=== PATIENT | female | born 1980 | race Hispanic/Latino ===

== ENCOUNTER 2018-10-24 16:40 | Inpatient (IN) | payer MEDICAID, OTHER, SELFPAY ==
[2018-10-24 18:12] VITALS: BMI 36.7
--- NOTE | 2018-10-24 18:15 | PDOC.FPROB ---
FMR OB H&P: HPI - History of Present Illness Chief Complaint: Elevated BP's at [facility] Indentification: 38 year old History of Present Illness: 38 year old at 38 wks by 17.1 wk julieta presents due to elevated BP's at clinic. Patient was noted to have several elevated SBP's in the 150's. She was also complaining of headaches at that time. She currently denies headache, vision changes, RUQ pain, swelling, or shortness of breath. Patient denies LoF, contractions, vaginal bleeding, or vaginal discharge. Primary Care Physician: [facility] Felecia De La Cruz FMR OB H&P: Current - Care : 4 Para: [id number] Gestational age: 38.0 wks Due date: 11/07/2018 Dating Criteria: LMP/17.1 wk US - OB Labs Blood type: A RH: positive Antibody Screen: negative HIV: negative RPR: negative HepBsAg: negative Rubella: immune Gonorrhea: negative Chlamydia: negative FMR OB H&P: History - Past Medical History PMH: Obesity - OB History OB History: AMA Obesity - HISTOLOGY AIDE History HISTOLOGY AIDE History: Denies - Surgical History Sx History: Denies - Social History Social History: Denies alcohol, tobacco, or drug use. - Family History Family History: Noncontributory FMR OB H&P: Medications - Current Home Medications: Medication Instructions Recorded Confirmed Type Calcium Carbonate [Tums] 500 mg PO QID PRN 10/24/18 10/24/18 History Vit,Calc76/Iron/Folic 1 tablet PO DAILY 10/24/18 10/24/18 History [Prenatabs Rx Tablet] Allergies/Adverse Reactions: Allergies Allergy/AdvReac Type Severity Reaction Status Date / Time No Known Allergies Allergy Unverified 10/24/18 18:07 FMR OB H&P: ROS - Review of Systems General: denies: fever/chills, weight/appetite/sleep changes Eyes: denies: vision changes, double vision ENT: denies: nasal congestion, rhinorrhea, sore throat Cardiovascular: denies: chest pain, palpitation, edema Respiratory: denies: cough, congestion, shortness of breath Gastrointestinal: denies: abdominal pain, nausea, vomiting, diarrhea Genitourinary (Female): denies: dysuria, vaginal discharge, vaginal pain, vaginal bleeding, contractions, vaginal pressure Musculoskeletal: denies: pain, stiffness Neurologic: denies: syncope, seizures Hematologic/Lymphatic: denies: prolonged or excessive bleeding Psychological: denies: depression, anxiety FMR OB H&P: Vital Signs - Maternal Vital signs: BP's 131/77 - 149/86 Pulse 60's Afebrile - Heart Tones Baseline: 130 Variability: moderate Acceleration: present Deceleration: absent Category: category 1 [place] contractions every: q5 min FMR OB H&P: Physical Exam - Physical Exam General: NAD, awake, alert and oriented HEENT: MMM, conjunctiva clear, grossly normal vision, grossly normal hearing Neck: supple Heart: RRR, pulses present General: CTAB, no respiratory distress Abdomen: soft, gravid, non-tender Musculoskeletal: pulses present, FROM in all four extremities Neurological: no tremor, no focal deficit Skin: no rash, capillary refill <2 seconds Lymphatic: no unusual bruising or bleeding, no purpura Psychiatric: intact recent and remote memory, good judgement and insight FMR OB H&P: A/P - Problem List (1) Term Current Visit: Yes Status: Acute Code(s): Z34.80 - ENCOUNTER FOR SUPRVSN OF NORMAL , UNSP TRIMESTER (2) AMA (advanced maternal age) multigravida 35+ Current Visit: Yes Status: Acute Code(s): O09.529 - SUPERVISION OF ELDERLY MULTIGRAVIDA, UNSPECIFIED TRIMESTER (3) Gestational hypertension Current Visit: Yes Status: Suspected Code(s): O13.9 - GESTATIONAL HTN W/O SIGNIFICANT PROTEINURIA, UNSP TRIMESTER Disposition: 38 year old at 38 wks by LMP/17.1 wk sono presents due to elevated BP's at [facility]. 1. Suspected gHTN - Workup pending (CBC, CMP, urine protein/creatinine) - q15 min BP's: Range since admission 131/77 - 149/86 - Patient currently asymptomatic but was noted to have NICHOLAS earlier today at [facility] - [facility] appt at 15:30, BP's continue to be elevated 4 hours from initial elevated BP. Will wait an additional 2 hours to see if still elevated. If still elevated at that time, then patient meets criteria for gHTN and at 38 wks is candidate for induction. 2. AMA 3. Obesity Discussion: Date/Time: 10/24/181812 This H&P was discussed with Dr. Pham who agrees with the above documentation and plan. Signature: Alvina Meza DO PGY-2 Addendum - Attending - Attending Attestation Date/Time: 10/24/182204 I personally evaluated the patient and discussed the management with Dr. Meza and Nick. I agree with the History, Examination, Assessment and Plan documented above with any addition or exceptions noted below.
[2018-10-24 18:50] LABS: #Eosinphils 0.1 thou/uL (0.0-0.7); #Monocytes 0.6 thou/uL (0.11-0.59); #Neutrophils 7.7 thou/uL (1.40-6.50); %Basophils 0.1 % (0.0-1.0); %Eosinophils 0.8 % (0.0-10.0); %Lymphocytes 19.4 % (21.0-51.0); %Monocytes 5.5 % (0.0-10.0); %Neutrophils 74.2 % (42.0-75.0); Hemoglobin 13.3 g/dL (12.0-16.0); Mean Corpuscular HGB CONC 33.9 g/dL (32.0-36.0); Mean Corpuscular Hemoglobin 29.8 pg (27.0-31.0); Mean Corpuscular Volume 87.9 fL (78.0-98.0); Mean Platelet Volume 9.2 fL (7.4-10.4); Platelet Count 218 thou/uL (130-400); RBC Distribution Width 12.8 % (11.5-14.5); Red Blood Cell (RBC) Count 4.46 mill/uL (4.20-5.40); White Blood Cell (WBC) Count 10.4 thou/uL (4.8-10.8)
[2018-10-24 19:09] LABS: AST (SGOT) 12 U/L (5-34); Albumin 3.2 g/dL (3.5-5.0); Anion Gap 10 mmol/L (10-20); Bilirubin, Total Less than 0.2 mg/dL (0.2-1.2); Calc. Creatinine Clearance 163 mL/min (70-130); Calcium 9.6 mg/dL (7.8-10.44); Carbon Dioxide 22 mmol/L (22-29); Chloride 109 mmol/L (98-107); Estimated GFR-MDRD Greater than 90; Globulin 3.3 g/dL (2.4-3.5); Glucose 80 mg/dL (70-105); Potassium 4.1 mmol/L (3.5-5.1); Protein, Total 6.5 g/dL (6.0-8.3); Sodium 137 mmol/L (136-145)
[2018-10-24 19:25] LABS: ALT (SGPT) 10 U/L (8-55); Alkaline Phosphatase 151 U/L (40-150); BUN (Urea Nitrogen) 9 mg/dL (7.0-18.7)
[2018-10-24 19:50] LABS: Creatinine, Urine 81.55 mg/dL (47-110)
[2018-10-24] MEDS ORDERED: NS / Oxytocin 40 units/1000ml 1,000 ML IV PRN (21:23)
[2018-10-24] MEDS ORDERED: Lidocaine 1% (PF) 30 ML VIAL SC PRN (21:23)
[2018-10-24] MEDS ORDERED: Ondansetron PF 4 MG/2 ML Vial IVP PRN (21:23)
[2018-10-24] MEDS ORDERED: Acetaminophen 500 MG TAB PO PRN (21:23)
[2018-10-24] MEDS ORDERED: Promethazine HCl 25 MG/ML VIAL IM PRN (21:23)
--- NOTE | 2018-10-24 21:32 | PDOC.EVN ---
Event Note - Event Note Event Note: Pt's urine protein/creatinine ratio shows .31, meeting criteria for pre- eclampsia. I discussed the results with the pt and she acknowledges understanding of her condition and our recommendation to induce. Pt will need cytotec induction due to unfavorable cervix.
[2018-10-24] MEDS: Lactated Ringer's 1,000 ML IV SCH (22:55)
--- NOTE | 2018-10-24 23:15 | ULT ---
LIMITED OB ULTRASOUND: 10/24/18 HISTORY: 38-year-old female for limited OB ultrasound to evaluate for position and placental location. There is a single intrauterine fetus in vertex presentation. Heart rate 139 beats per minute. Placent a is fundal and on the maternal right side. 5.0 x 3.8 x 6.1 cm hypoechoic solid mass within the lower uterus evidence for a uterine fibroid. IMPRESSION: Vertex presentation. heart rate 139 beats per minute. Fundal and maternal right sided placenta. Evidence for an intrauterine fibroid. POS: DOUGIE
[2018-10-24 23:29] LABS: Hemoglobin 13.5 g/dL (12.0-16.0); Mean Corpuscular Hemoglobin 30.6 pg (27.0-31.0); Mean Corpuscular Volume 87.5 fL (78.0-98.0); Mean Platelet Volume 9.6 fL (7.4-10.4); Platelet Count 216 thou/uL (130-400); RBC Distribution Width 12.9 % (11.5-14.5); Red Blood Cell (RBC) Count 4.41 mill/uL (4.20-5.40); White Blood Cell (WBC) Count 11.6 thou/uL (4.8-10.8)
[2018-10-25 00:01] LABS: HBSAg Index 0.17 S/CO (0-0.99); Hep B Surf Ag Non-Reactive S/CO (NonReactive); Syphilis Antibody Nonreactive (Nonreactive); Syphilis Antibody Index 0.03 S/CO (<1.00 Non-Reactive)
[2018-10-25] MEDS: Misoprostol 100 MCG TAB VAG SCH ×2 (00:24→19:20)
--- NOTE | 2018-10-25 02:44 | PDOC.LDPN ---
Labor & Delivery Progress Note - Subjective Subjective: comfortable, no concerns - Objective Vital signs reviewed and normal: yes General: NAD, resting Uterine fundus: non tender SVE: 1/0/-3 FHT: category 1 (baseline 150s, moderate variability, accels present, no decels) - Assessment (1) Pre-eclampsia Code(s): O14.90 - UNSPECIFIED PRE-ECLAMPSIA, UNSPECIFIED TRIMESTER Current Visit: Yes Status: Acute (2) AMA (advanced maternal age) multigravida 35+ Code(s): O09.529 - SUPERVISION OF ELDERLY MULTIGRAVIDA, UNSPECIFIED TRIMESTER Current Visit: Yes Status: Acute (3) Term Code(s): Z34.80 - ENCOUNTER FOR SUPRVSN OF NORMAL , UNSP TRIMESTER Current Visit: Yes Status: Acute -: This is a 38 yo at 38.1 wk Pre-eclampsia and gHTN -Pt meets criteria for pre-eclampsia with urine protein/creatinine ratio of 0.31 -Pt had elevated BP greater that 4 hours apart -Admit to L&D -Cytotec induction -Continue monitoring vital signs and FHT -Initial check is 3, no contractions at this time AMA Obesity Addendum - Attending - Attending Attestation Date/Time: 10/25/18 [id number] I personally evaluated the patient and discussed the management with Dr. Romero. I agree with the History, Examination, Assessment and Plan documented above with any addition or exceptions noted below. My review of the FHT since 0200 has been mainly Cat 2. no Cat 3.
[2018-10-25] MEDS: Lactated Ringer's 1,000 ML IV SCH (02:46)
--- NOTE | 2018-10-25 02:54 | PDOC.EVN ---
Event Note - Event Note Event Note: Paged to L&D for concerning strip. FHTs baseline 150, variability mild to moderate, 3 variable decels present with quick return of FHR. Cat II strip. Pt has been feeling some contractions, every 3-4 minutes and stopped when pt was turned on her side. We are currently bolusing IVFs. We will continue monitoring FHT. Next check is at 0400.
[2018-10-25] MEDS ORDERED: Bicitra 30 ML UDCUP ONE (04:11)
--- NOTE | 2018-10-25 04:22 | PDOC.EVN ---
Event Note - Event Note Event Note: Called to assess the patient by Dr Romero. Demetria is feelling wwell. CTX are mild and intermittent. Vitals show mildly elevated BP. Labs are consistent with Pre-eclampsia without severe features. Review of FHT tracign shows minly Cat 2 sicne about 0200. There have been intermittent variable decels a few of which have been prolonged. Demetria's nurse has been changing her position, giving IV fluid bolus, and Oxygen since about 0200. Cx: /high A/P In light of an unresolved Cat 2 tracing despite interventions to resolve, remove from delivery, I recommend proceeding with delivery. Discussed R/B/I/A with Demetria, the alternative being to not proceed with , but continue monitoring. She agrees with plan to proceed with delivery for persistent Cat 2 tracing. Consent obtained. Anesthesia notified.
[2018-10-25] MEDS ORDERED: Morphine PF 1 MG/ML SYR ONE (04:34)
[2018-10-25] MEDS ORDERED: Oxytocin 10 UNITS/ML VIAL ONE (04:34)
[2018-10-25] MEDS ORDERED: ePHEDrine/0.9% NaCl/PF SYRINGE 50 mg/10 ml ONE ×2 (04:47→12:35)
[2018-10-25] MEDS ORDERED: L&D-Morphine 4 MG/ML VIAL SLOW IVP PRN (05:15)
[2018-10-25] MEDS ORDERED: Ondansetron HCl/PF 4 MG/2 ML Vial IVP PRN (05:15)
[2018-10-25] MEDS ORDERED: Naloxone HCl 0.4 mg/ml Vial IVP PRN ×2 (05:15)
[2018-10-25] MEDS ORDERED: Promethazine HCl 25 MG/ML VIAL IM PRN (05:15)
[2018-10-25] MEDS ORDERED: Naloxone HCl 0.4 mg/ml Vial IV PRN (05:15)
[2018-10-25] MEDS ORDERED: Ondansetron PF 4 MG/2 ML Vial IVP PRN (05:15)
[2018-10-25] MEDS ORDERED: Ketorolac Tromethamine 30 MG/ML VIAL IVP SCH (05:15)
[2018-10-25] MEDS ORDERED: Meperidine HCl/PF 25 MG/ML VIAL SLOW IVP PRN (05:15)
[2018-10-25] MEDS ORDERED: Communication Order-Pharmacy FS SCH (05:15)
[2018-10-25] MEDS ORDERED: diphenhydrAMINE 50 MG/ML VIAL IVP PRN (05:15)
[2018-10-25] MEDS ORDERED: Promethazine HCl 25 MG SUPP PR PRN (05:15)
[2018-10-25] MEDS ORDERED: HYDROmorphone 2 MG/ML VIAL SLOW IVP PRN (05:15)
[2018-10-25] MEDS ORDERED: Eucerin (Mineral Oil/Petrolatum,White) 30 gm Jar TOP PRN (05:15)
[2018-10-25] MEDS ORDERED: Ketorolac Tromethamine 30 MG/ML VIAL IVP PRN (05:15)
[2018-10-25 05:26] LABS: Actual Bicarbonate (HCO3a) 24.4 mEq/L (22-28); Base Excess (BEa) -3.1 mEq/L (-2.0 to +3.0)
[2018-10-25] MEDS ORDERED: Ketorolac Tromethamine 30 MG/ML VIAL ONE (07:00)
--- NOTE | 2018-10-25 07:00 | PDOC.OPDEL ---
OB Operative/Delivery Note Delivery Dr/Surgeon: Jose Meza Assist: Ankit Pre-Delivery Diagnosis: medically indicated induction, non-reassuring tracing Procedure/Post Delivery Dx: primary low transverse CS Weeks gestation: 38 (38.1 wks) Anesthesia: spinal - Findings A Sex: male - 1 min: 8 - 5 min: 9 - Additional Findings/Plan Placenta delivered: manual removal findings: low transverse hysterotomy without extension, normal tubes, normal ovaries, other (appx 6 cm by 6 cm by 5 cm anterior uterine fibroid) Estimated blood loss: QBL 495 mL Compilations/Other Findings: Date of Procedure: 10/25/2018 Resident Surgeon: Susana Order Takers Supervisor Surgeon: Jose Attending Surgeon: Ankit Procedure: Primary low transverse caesarean section Preoperative Diagnosis: 1) Term intrauterine 2) Medically indicated IOL for pre-eclampsia 3) NRFHT's (Persistent category 2 strip with recurrent deep variables and late decelerations) 4) AMA 5) Maternal obesity Postoperative Diagnosis: 1) Term intrauterine , delivered 2) s/p pLTCS 3) Same as above 4) Large appx 6 cm by 6 cm by 5 cm anterior uterine fibroid likely contributing to NRFHT's and possible IUGR Anesthesia: spinal Indications: The patient is a 38 year old G4,P3003 female at 38.1 weeks gestation who presented to L&D initially for PIH workup. She was found to have pre-eclampsia and was subsequently induced. Due to NRFHT's (persistent category II strip with recurrent deep variables and late decelerations), patient was taken back for urgent pLTCS. Procedure in Detail: After risks, benefits, and alternatives were explained to the patient, she gave informed consent. Pre-operative antibiotics included Cefazolin 2 gram IV. The patient was taken to the operating room and spinal anesthesia was initiated. She was placed in the supine position with a left tilt and prepped and draped in usual sterile fashion. A Pfannenstiel incision was made with a scalpel and carried down to the level of the fascia which was sharply nicked. The fascial cut was extended bluntly. The inferior and superior edges of the cut fascial edges were elevated with Kwabena clamps and the underlying rectus muscles were sharply and bluntly dissected free. The recti were divided digitally and retracted manually. The peritoneum was entered bluntly and retracted manually. Bladder blade was placed. A low transverse score was made with the scalpel and the uterus was entered in the midline with the scalpel. Clear fluid was seen. The hysterotomy was extended manually. The was noted to be vertex and was easily delivered by fundal pressure. Mouth and nares were bulb suctioned. Cord clamped and cut and grossly normal male infant was handed to waiting nurse. Cord segment sent for cord gases. Cord blood was obtained. Placenta was manually extracted, found to be intact with 3 vessel cord and discarded. Difficult extraction of placenta 2/ 2 large appx 6 cm by 6 cm by 5 cm anterior uterine fibroid. The uterus was externalized and the endometrium was curetted with a dry lap. The bladder blade was replaced and the uterus was closed with a running locking #1 Chromic suture followed by a running non-locking #1 Chromic imbricating suture. Following this hemostasis was noted. The abdomen was suctioned free of clots. The uterus was internalized and the hysterotomy was again noted to be hemostatic. The fascia was closed with a running non-locking 0-PDS suture. The subcutaneous tissue was irrigated and there were no bleeders. The subcutaenous layer was brought together using 3-0 plain gut with simple interrupted suture. The skin was approximated with eleazar and a pressure dressing was placed. All counts were correct. The patient tolerated the procedure well and was taken to the recovery room in stable condition. Estimated Blood Loss: 495 mL Complications: None Specimens: Cord segment sent for analysis and cord blood sent to lab for blood type Findings: Grossly normal SGA male infant with apgars of 8 and 9. Grossly normal placenta with 3 vessel cord discarded. Large appx 6 cm by 6 cm by 5 cm anterior right uterine fibroid which likely contributed to IUGR and NRFHT's. Drains: Lynn to gravity draining clear urine Post delivery plan: routine recovery
[2018-10-25] MEDS ORDERED: Bicitra 30 ML UDCUP PO SCH (07:30)
[2018-10-25] MEDS ORDERED: CEFAZOLIN/Water 2 GM/20 ML SYRINGE SLOW IVP SCH (07:30)
[2018-10-25] MEDS ORDERED: CEFAZOLIN 2 GM/50 ML-DEXTROSE 2 GM in Premix Bag 1 BAG IVPB SCH (07:45)
[2018-10-25] MEDS ORDERED: Ibuprofen 800 MG TAB PO SCH (09:12)
[2018-10-25] MEDS ORDERED: Prenatal Vitamin 1 TAB PO SCH ×2 (09:12→09:30)
[2018-10-25] MEDS ORDERED: Bisacodyl 10 MG SUPP PR PRN (09:12)
[2018-10-25] MEDS ORDERED: Adacel (T-DAP) 0.5 ML SYRINGE IM ONE (09:12)
[2018-10-25] MEDS ORDERED: Simethicone Chewable 80 MG TAB PO PRN (09:12)
[2018-10-25] MEDS ORDERED: Ferrous Sulfate 325 MG TAB PO SCH ×2 (09:12→09:30)
[2018-10-25] MEDS ORDERED: NS / Oxytocin 40 units/1000ml 1,000 ML IV SCH (09:12)
[2018-10-25] MEDS ORDERED: Docusate Calcium (SURFAK) 240 MG CAP PO SCH ×2 (09:12→09:30)
--- NOTE | 2018-10-25 11:19 | PDOC.EVN ---
Event Note - Event Note Event Note: 4-Hour Post-op note Patient is doing well s/p primary LTCS. She reports some dizziness and itching, but other has no complaints. She was able to tolerate eating jello. Vitals: P:73 RR: 20 BP: 107/59 Fundus firm and 2 below umbilicus Minimal Lochia A/P Pt is a 38 year old female s/p primary LTCS for non-reassuring heart tones. - stable. - pt doing well declines medications for pruritus and dizziness. - will advance diet as tolerated. - continue routine care
[2018-10-25] MEDS: Ibuprofen 800 MG TAB PO SCH ×2 (13:54→22:25)
[2018-10-25] MEDS: HYDROcodone/Acetaminophen 5/325 mg Tablet PO PRN (17:25)
[2018-10-25] MEDS: Ferrous Sulfate 325 MG TAB PO SCH (22:25)
[2018-10-25] MEDS: Docusate Calcium (SURFAK) 240 MG CAP PO SCH (22:25)
[2018-10-26] MEDS: Ibuprofen 800 MG TAB PO SCH ×3 (06:10→21:30)
[2018-10-26 06:45] LABS: Hemoglobin 10.8 g/dL (12.0-16.0); Mean Corpuscular HGB CONC 33.5 g/dL (32.0-36.0); Mean Corpuscular Hemoglobin 29.8 pg (27.0-31.0); Mean Corpuscular Volume 89.1 fL (78.0-98.0); Mean Platelet Volume 9.2 fL (7.4-10.4); Platelet Count 166 thou/uL (130-400); Red Blood Cell (RBC) Count 3.62 mill/uL (4.20-5.40); White Blood Cell (WBC) Count 11.7 thou/uL (4.8-10.8)
--- NOTE | 2018-10-26 07:26 | PDOC.PP ---
Post Progress Note Post Day #: 1 Subjective: Patient doing well. Tolerating PO. Ambulating. No significant overnight events. PO intake tolerated: yes Flatus: yes Ambulation: yes Vital Signs (12 hours) Temp Pulse Resp BP Pulse Ox 10/26/18 03:05 98.3 F 77 18 101/53 L 96 10/26/18 00:05 97.8 F 84 16 97/55 L 10/25/18 19:45 97.9 F 83 16 119/58 L 98 Weight Weight 82.554 kg - Physical Examination Cardiovascular: RRR Respiratory: non-labored breathing Abdominal: + bowel sounds, lochia (Less than that of period), no distention, appropriately TTP Fundus firm & at: at umbilicus Extremities: negative homans (B) Skin: no rash Deviation from normal: Incision site still has bandage in place; clean, dry, intact Neurological: no gross focal deficits Psychiatric: A&Ox3, normal affect Result Diagrams: 10/26/18 06:01 10/24/18 18:36 Additional Labs: Post Labs Blood Type A POSITIVE 10/24/18 22:55 Hep Bs Antigen Non-Reactive S/CO (NonReactive) 10/24/18 22:55 (1) Term delivered Code(s): O80 - ENCOUNTER FOR FULL-TERM UNCOMPLICATED DELIVERY Status: Acute (2) AMA (advanced maternal age) multigravida 35+ Code(s): O09.529 - SUPERVISION OF ELDERLY MULTIGRAVIDA, UNSPECIFIED TRIMESTER Status: Acute (3) Pre-eclampsia Code(s): O14.90 - UNSPECIFIED PRE-ECLAMPSIA, UNSPECIFIED TRIMESTER Status: Acute (4) S/P primary low transverse Code(s): Z98.891 - HISTORY OF UTERINE SCAR FROM PREVIOUS SURGERY Status: Acute - Assessment/Plan 38 year old delivered TSGA at 38.1 wks by LMP/17.1 wk sono via pLTCS for NRFHT's on 10/25 at 4:59. Apgars 8/9. 1. Term , delivered - IOL for Pre-E; urgent pLTCS for NRFHT's - Post op day #1 - Routine PP care 2. s/p pLTCS - Post op day #1 - Recovering well - Passing flatus - Ambulating 3. Pre-E - IOL at 38 wks --> pLTCS for NRFHT's - BP's PP have been well controlled (97/55 - 137/82) - Continue to monitor BP's and monitor for signs/symptoms of pre-E 4. AMA 5. Large anterior uterine fibroid - Measuring appx 6 cm by 6 cm by 5 cm - Addressed with patient - Possible reason for SGA and other complications Dispo: Stable. Plan for possible d/c home tomorrow if patient doing well. is now out of NICU. Addendum - Attending - Attending Attestation Date/Time: 10/26/18 1215 I personally evaluated the patient and discussed the management with Dr. Meza I agree with the History, Examination, Assessment and Plan documented above with any addition or exceptions noted below. 38 yo now female s/p PLTCS for NRFHT on 10/25/18 HD#2 POD#1 Patient doing well. No acute changes overnight. Ambulating well in room. Voiding well. Positive flatus. Pain controlled with PO meds. Mild lochia. VS reviewed. BP normotensive. Labs reviewed. NAD. AAO x4. RRR. no M/R/G CTA bilaterally. No W/C/R NT/ND. Fundus firm and below umbilicus. Bandage still inplace but clean and dry. FROM. No C/C/E. 1. s/p PLTCS: Routine PO/PP care. Ambulating. Meeting milestones. Bandage to be removed today. Monitor closely. 2. Preeclampsia without severe features: Asymptomatic. BP normotensive. Will need BP check 3 to 5 days after discharge. Will need ASA ppx with next . Patient at risk for care home CV complications. Continue to monitor BP and symptoms. 3. AMA: Discuss further risk with subsequent . Will need ASA ppx. 4. Intramural Leiomyoma: Can follow up outpatient as needed related to symptoms. Recommend contraception to help minimize growth. 5. BMI 37: Lifestyle changes recommended. 6. Contraception: LARC 7. Dispo: Continue inpatient monitoring for 72 hours after delivery. Adriane
[2018-10-26] MEDS: Docusate Calcium (SURFAK) 240 MG CAP PO SCH ×2 (10:35→21:30)
[2018-10-26] MEDS: Ferrous Sulfate 325 MG TAB PO SCH ×2 (10:35→21:32)
[2018-10-26] MEDS: Prenatal Vitamin 1 TAB PO SCH (10:35)
[2018-10-26] MEDS: HYDROcodone/Acetaminophen 5/325 mg Tablet PO PRN ×3 (10:36→21:31)
[2018-10-27] MEDS: HYDROcodone/Acetaminophen 5/325 mg Tablet PO PRN ×3 (03:43→21:45)
[2018-10-27] MEDS: Ibuprofen 800 MG TAB PO SCH ×3 (05:40→21:45)
--- NOTE | 2018-10-27 09:20 | PDOC.PP ---
Post Progress Note Post Day #: 2 Subjective: Patient doing well this AM. No significant overnight events. Patient ambulating without difficulty. Passing flatus and has had BM. Pain well controlled with PO pain medication. Lochia mild, less than that of period. PO intake tolerated: yes Flatus: yes Ambulation: yes Vital Signs (12 hours) Temp Pulse Resp BP Pulse Ox 10/27/18 08:14 98.5 F 83 16 106/56 L 95 10/27/18 03:46 98.5 F 83 18 107/59 L 96 10/26/18 23:49 98.3 F 88 18 111/55 L 97 Weight Weight 82.554 kg - Physical Examination General: NAD Cardiovascular: no m/r/g, RRR Respiratory: clear to auscultation bilaterally, non-labored breathing Abdominal: + bowel sounds, lochia (less than that of period), no distention, appropriately TTP Fundus firm & at: below umbilicus Extremities: negative homans (B) Skin: CS incision dry & intact, no rash (No drainage or openings in incision) Neurological: no gross focal deficits Psychiatric: A&Ox3, normal affect Result Diagrams: 10/26/18 06:01 10/24/18 18:36 Additional Labs: Post Labs Blood Type A POSITIVE 10/24/18 22:55 Hep Bs Antigen Non-Reactive S/CO (NonReactive) 10/24/18 22:55 (1) Term delivered Code(s): O80 - ENCOUNTER FOR FULL-TERM UNCOMPLICATED DELIVERY Status: Acute (2) AMA (advanced maternal age) multigravida 35+ Code(s): O09.529 - SUPERVISION OF ELDERLY MULTIGRAVIDA, UNSPECIFIED TRIMESTER Status: Acute (3) Pre-eclampsia Code(s): O14.90 - UNSPECIFIED PRE-ECLAMPSIA, UNSPECIFIED TRIMESTER Status: Acute (4) S/P primary low transverse Code(s): Z98.891 - HISTORY OF UTERINE SCAR FROM PREVIOUS SURGERY Status: Acute - Assessment/Plan 38 year old now delivered TSGA infant at 38.1 wks by LMP/17.1 wk sono via pLTCS for NRFHT's on 10/25 at 4:59. Apgars 8/9. 1. Term , delivered - IOL for Pre-E; urgent pLTCS for NRFHT's - Post op day #2 - Routine PP care - No complications PP - Uncertain of exact contraception at this time, but considering LARC. Will discuss further at 1 wk PP visit. 2. s/p pLTCS - Post op day #2 - Recovering well - Passing flatus - Ambulating 3. Pre-E without severe features - IOL at 38 wks --> pLTCS for NRFHT's - BP's PP have been well controlled; normotensive with no elevated BP's since delivery - Continue to monitor BP's and monitor for signs/symptoms of pre-E - 72 hour observation 4. AMA 5. Large anterior uterine fibroid; intramural leiomyoma - Measuring appx 6 cm by 6 cm by 5 cm - Addressed with patient - Possible reason for SGA and other complications - Recommend contraception to help reduce size, discussed with patient today 6. Obesity - Discussed lifestyle changes Dispo: Stable. 72 hour observation for BP. Plan for d/c home tomorrow AM. Patient will need BP checked at [facility] in 1 week. She will also need eleazar removed tomorrow or at one week follow up visit. Addendum - Attending - Attending Attestation Date/Time: 10/27/18 1201 I personally evaluated the patient and discussed the management with Dr. Meza I agree with the History, Examination, Assessment and Plan documented above with any addition or exceptions noted below. 38 yo now female s/p PLTCS for NRFHT on 10/25/18 HD#3 POD#2 Patient doing well. No acute changes overnight. Ambulating. Voiding well. Positive flatus and BM. Pain controlled with PO meds. Mild lochia. . VS reviewed. BP normotensive. NAD. AAO x4. RRR. no M/R/G CTA bilaterally. No W/C/R NT/ND. Fundus firm and below umbilicus. Incision c/d without erythema or drainage. Eleazar in place. FROM. No C/C/E. 1. s/p PLTCS: Routine PO/PP care. Ambulating. Meeting milestones. Incision with eleazar in place. Monitor closely. 2. Preeclampsia without severe features: Asymptomatic. BP normotensive. Will need BP check 3 to 5 days after discharge. Will need ASA ppx with next . Patient at risk for detention CV complications. Continue to monitor BP and symptoms for 72 hours. 3. AMA: Discuss further risk with subsequent . Will need ASA ppx. 4. Intramural Leiomyoma: Can follow up outpatient as needed related to symptoms. Recommend contraception to help minimize growth/symptoms. 5. BMI 37: Lifestyle changes recommended. 6. Contraception: LARC 7. Dispo: Continue inpatient monitoring for 72 hours after delivery. Like d/c to home tomorrow. Will remove eleazar prior to d/c. Follow up at [facility] in 3 ot 5 days after discharge. Adriane
[2018-10-27] MEDS: Ferrous Sulfate 325 MG TAB PO SCH ×2 (14:22→23:45)
[2018-10-27] MEDS: Prenatal Vitamin 1 TAB PO SCH (14:22)
[2018-10-27] MEDS: Docusate Calcium (SURFAK) 240 MG CAP PO SCH ×2 (14:22→21:45)
[2018-10-28] MEDS: Ibuprofen 800 MG TAB PO SCH ×2 (06:34→13:21)
--- NOTE | 2018-10-28 07:08 | PDOC.PP ---
Post Progress Note Post Day #: 3 Subjective: Patient doing well. No significant overnight events. Patient tolerating PO, passing flatus, ambulating. Pain well controlled with PO pain medications. Denies chest pain, shortness of breath, swelling, palpitations, headaches, or vision changes. PO intake tolerated: yes Flatus: yes Ambulation: yes Vital Signs (12 hours) Temp Pulse Resp BP Pulse Ox 10/28/18 00:29 100 10/28/18 00:28 98.3 F 83 18 110/57 L 100 10/27/18 19:38 98.4 F 89 18 140/70 97 Weight Weight 82.554 kg - Physical Examination General: NAD Cardiovascular: RRR Respiratory: non-labored breathing Abdominal: + bowel sounds, lochia (mild), no distention, appropriately TTP Fundus firm & at: below umbilicus Extremities: negative homans (B) Skin: CS incision dry & intact, no rash Neurological: no gross focal deficits Psychiatric: A&Ox3, normal affect Result Diagrams: 10/26/18 06:01 10/24/18 18:36 Additional Labs: Post Labs Blood Type A POSITIVE 10/24/18 22:55 Hep Bs Antigen Non-Reactive S/CO (NonReactive) 10/24/18 22:55 (1) Term delivered Code(s): O80 - ENCOUNTER FOR FULL-TERM UNCOMPLICATED DELIVERY Status: Acute (2) AMA (advanced maternal age) multigravida 35+ Code(s): O09.529 - SUPERVISION OF ELDERLY MULTIGRAVIDA, UNSPECIFIED TRIMESTER Status: Acute (3) Pre-eclampsia Code(s): O14.90 - UNSPECIFIED PRE-ECLAMPSIA, UNSPECIFIED TRIMESTER Status: Acute (4) S/P primary low transverse Code(s): Z98.891 - HISTORY OF UTERINE SCAR FROM PREVIOUS SURGERY Status: Acute - Assessment/Plan 38 year old now delivered TSGA infant at 38.1 wks by LMP/17.1 wk sono via pLTCS for NRFHT's on 10/25 at 4:59. Apgars 8/9. 1. Term , delivered - IOL for Pre-E; urgent pLTCS for NRFHT's - Post op day #3 - Routine PP care - No complications PP - Uncertain of exact contraception at this time, but considering LARC. Will discuss further at 1 wk PP visit. 2. s/p pLTCS - Post op day #3 - Recovering well - Passing flatus - Ambulating 3. Pre-E without severe features - IOL at 38 wks --> pLTCS for NRFHT's - BP's PP have been well controlled; highest BP 140/90. No signs/symptoms of pre -E - Continue to monitor BP's and monitor for signs/symptoms of pre-E - Patient has been observed for 72 hours; plan for d/c home today - Patient will need ASA therapy during next 4. AMA 5. Large anterior uterine fibroid; intramural leiomyoma - Measuring appx 6 cm by 6 cm by 5 cm - Addressed with patient - Possible reason for SGA infant and other complications - Recommend contraception to help reduce size, this has been discussed with patient 6. Obesity - Discussed lifestyle changes Dispo: Stable. Patient has been observed for 72 hours. BP's have remained normotensive, except one BP last night of 140/70. Patient asymptomatic. Patient will need BP checked at [facility] in 1 week. She will also need eleazar removed today. This was discussed with the OB/Peds team. D/c home today. Addendum - Attending - Attending Attestation Date/Time: 10/28/18 [id number] I personally evaluated the patient and discussed the management with Dr. Meza I agree with the History, Examination, Assessment and Plan documented above with any addition or exceptions noted below. 38 yo now female s/p PLTCS for NRFHT on 10/25/18 HD#4 POD#3 Patient doing well. No acute changes overnight. well. Mild headache this morning but resolved with medication. VS reviewed. BP normotensive. NAD. AAO x4. RRR. no M/R/G CTA bilaterally. No W/C/R NT/ND. Fundus firm and below umbilicus. Incision c/d without erythema or drainage. Independence in place. FROM. No C/C/E. 1. s/p PLTCS: Routine PO/PP care. Meeting milestones. Incision healing well. Remove eleazar prior to d/c. 2. Preeclampsia without severe features: Asymptomatic. BP normotensive. Will need BP check 3 to 5 days after discharge. Will need ASA ppx with next . Patient at risk for [facility] CV complications. 3. AMA: Discuss further risk with subsequent . Will need ASA ppx. 4. Intramural Leiomyoma: Can follow up outpatient as needed related to symptoms. Recommend contraception to help minimize growth/symptoms. 5. BMI 37: Lifestyle changes recommended. 6. Contraception: LARC 7. Dispo: Follow up at [facility] in 3 days for incision check and BP monitoring. Ok to dc to home. Adriane
[2018-10-28] MEDS: Ferrous Sulfate 325 MG TAB PO SCH (07:52)
[2018-10-28] MEDS: HYDROcodone/Acetaminophen 5/325 mg Tablet PO PRN ×2 (07:58→13:20)
[2018-10-28] MEDS: Prenatal Vitamin 1 TAB PO SCH (07:58)
[2018-10-28] MEDS: Docusate Calcium (SURFAK) 240 MG CAP PO SCH (07:58)
[2018-10-28 08:08] VITALS: BP 122/71; TEMP 98.3
== END 2018-10-28 13:25 | disposition home or self-care (01) | DRG 788 ==
LOC: L&D/OP 16:40 → L&D 23:36 → 3SE 10-25 09:08 → 3SW 10-28 06:47
PROVIDERS: ADMIT Emergency Medicine; ATTEND Emergency Medicine
PROC: 3E0P7VZ Introduction of Hormone into Female Reproductive, Via Natural or Artificial Opening (ICD-10-PCS; 2018-10-24)
PROC: 10D00Z1 Extraction of Products of Conception, Low, Open Approach (ICD-10-PCS; principal; 2018-10-25)
DX: O14.94 Unspecified pre-eclampsia, complicating childbirth (principal); O76 Abnormality in fetal heart rate and rhythm complicating labor and delivery; O34.13 Maternal care for benign tumor of corpus uteri, third trimester; D25.1 Intramural leiomyoma of uterus; O36.5930 Maternal care for other known or suspected poor fetal growth, third trimester, not applicable or unspecified; O99.214 Obesity complicating childbirth; E66.9 Obesity, unspecified; Z3A.38 38 weeks gestation of pregnancy; Z37.0 Single live birth
CPT/HCPCS: 36415; 51702; 76815; 80053; 82570; 82805; 84156; 85025; 85027; 86780; 86850; 86900; 86901; 87340; 88307; 99285; J1885; J2274; J2590